=== PATIENT | male | born 1950 | race African-American/Black ===

== ENCOUNTER 2017-08-27 10:01 | Emergency (ER) | payer MEDICARE, MEDICAID ==
[2017-08-27] MEDS ORDERED: LORazepam TAB(*) 1 MG PO ONE (11:28)
[2017-08-27 13:25] VITALS: BP 145/83
--- NOTE | 2017-08-27 18:06 | ED ---
Jordan Patel Julia, scribed for Kali Rios MD on 08/27/17 at 1111 . Lower Extremity - HPI Summary HPI Summary: This patient is a 67 year old M BIBA to [facility] with a chief complaint of L lower back and flank pain that radiates into the L hip since the morning of . The patient rates the pain 10/10 in severity and is unable to walk. Patient fell on 08/23/17 but did not feel pain until two days ago. Patient has been taking his hydrocodone for his chronic back pain to manage his pain. Patient has morphine and ibuprofen allergy. - History of Current Complaint Chief Complaint: EDBackInjuryPain Stated Complaint: BACK PAIN Time Seen by Provider: 08/27/17 10:45 Hx Obtained From: Patient Mechanism Of Injury: Fall From A Standing Position Onset of Pain: Days - 2 Onset/Duration: Still Present Severity Currently: Severe Pain Intensity: 10 Pain Scale Used: 0-10 Numeric Timing: Constant Location: Radiates To - L hip - Allergies/Home Medications Allergies/Adverse Reactions: Allergies Allergy/AdvReac Type Severity Reaction Status Date / Time Celecoxib [From Celebrex] Allergy Intermediate Vomiting Verified 03/01/16 08:43 Ibuprofen Allergy Intermediate Heartburn Verified 03/01/16 08:43 Morphine Allergy Intermediate Rash, N/V Verified 03/01/16 08:43 PMH/Surg Hx/FS Hx/Imm Hx Endocrine/Hematology History: Denies: Hx Diabetes, Hx Systemic Lupus Erythematosus Cardiovascular History: Reports: Hx Angina, Hx Congestive Heart Failure - WITH SURGERY, Hx Coronary Artery Disease, Hx Hypercholesterolemia, Hx Hypertension, Hx Myocardial Infarction, Other Cardiovascular Problems/Disorders - Triple bypass Denies: Hx Pacemaker/ICD Respiratory History: Denies: Hx Asthma - does use inhaler, Hx Chronic Obstructive Pulmonary Disease (COPD), Other Respiratory Problems/Disorders GI History: Reports: Hx Gastroesophageal Reflux Disease Denies: Other GI Disorders History: Reports: Hx Benign Prostatic Hyperplasia, Hx Renal Disease - TORN URETER REPAIRED, Other Problems/Disorders - right ureter stent OUT NOW Denies: Hx Dialysis Musculoskeletal History: Reports: Hx Arthritis - back, right knee, Hx Rheumatoid Arthritis, Hx Back Problems, Other Musculoskeletal History - knee replacement Sensory History: Reports: Hx Cataracts - RIGHT EYE, Hx Contacts or Glasses, Hx Legally Blind - R eye only Denies: Hx Hearing Aid Opthamlomology History: Reports: Hx Cataracts - RIGHT EYE, Hx Contacts or Glasses, Hx Legally Blind - R eye only Neurological History: Reports: Hx Headaches - 3x/week, Hx Seizures - NO SEIZURES FOR 5 YEARS, Other Neuro Impairments/Disorders - hx blackout 2.5 years ago x 1; PAIN CLINIC PT Psychiatric History: Denies: Hx Panic Disorder - Cancer History Hx Chemotherapy: No - Surgical History Surgery Procedure, Year, and Place: EYE SURGERY X3 (RETINA, CATARACT, ), HEMMOROIDECTOMY , BILAT CTR X2 , 2007 , URETER REPAIR OF TEAR(LASER PROCEDURE) , 2012left , LEFT KNEE tendon issues-06/2013EYE SURGERIES WERE CLEARED PREVIOUSLYORBIT XRAYS DONE & CLEARED BY DR JOHNSON, KATHYA BAILEY. TRIPLE BYPASS, 12/2014, LEXIE LADD,RIGHT KNEE 01/2015,BILAT CARPAL TUNNEL. STENTING FOR GLAUCOMA. TOTAL RIGHT KNEE REPLACEMENT Hx Anesthesia Reactions: No Infectious Disease History: No Infectious Disease History: Denies: Traveled Outside the [place] in Last 30 Days - Family History Known Family History: Positive: Diabetes - maternal - Social History Alcohol Use: None Alcohol Amount: HX ETOH ABUSE, SOBER 5 YEARS Substance Use Type: Reports: None, Prescribed Hx Tobacco Use: Yes - QUIT 4 YRS AGO Smoking Status (MU): Former Smoker Type: Cigarettes Amount Used/How Often: 8 CIGS PER DAY Have You Smoked in the Last Year: No Review of Systems Negative: Fever Musculoskeletal: Other - lower back and L hip pain and difficulty walking All Other Systems Reviewed And Are Negative: Yes Physical Exam - Summary Physical Exam Summary: Appearance: The patient is well-nourished in no acute distress and in no acute pain. Skin: The skin is warm and dry and skin color reflects adequate perfusion. HEENT: The head is normocephalic and atraumatic. The pupils are equal and reactive. The conjunctivae are clear and without drainage. Nares are patent and without drainage. Mouth reveals moist mucous membranes and the throat is without erythema and exudate. The external ears are intact. The ear canals are patent and without drainage. The tympanic membranes are intact. Neck: the neck is supple with full range of motion and non-tender. There are no carotid bruits. There is no neck vein distension. Respiratory: Chest is non-tender. Lungs are clear to auscultation and breath sounds are symmetrical and equal. Cardiovascular: Heart is regular rate and rhythm. There is no murmur or rub auscultated. There is no peripheral edema and pulses are symmetrical and equal. Abdomen: The abdomen is soft and non-tender. There are normal bowel sounds heard in all four quadrants and there is no organomegaly palpated. Musculoskeletal: There is L sciatica area tenderness. Extremities are non- tender with full range of motion. There is good capillary refill. There is no peripheral edema or calf tenderness elicited. Neurological: Patient is alert and oriented to person, place and time. The patient has symmetrical motor strength in all four extremities. Cranial nerves are grossly intact. Deep tendon reflexes are symmetrical and equal in all four extremities. Psychiatric: The patient has an appropriate affect and does not exhibit any anxiety or depression. Triage Information Reviewed: Yes Vital Signs On Initial Exam: Initial Vitals Temp Pulse Resp BP Pulse Ox 99.5 F 72 18 149/84 95 08/27/17 10:02 08/27/17 10:02 08/27/17 10:02 08/27/17 10:02 08/27/17 10:02 Vital Signs Reviewed: Yes - Percy Coma Scale Coma Scale Total: 15 Diagnostics - Vital Signs Vital Signs Temp Pulse Resp BP Pulse Ox 08/27/17 10:30 69 132/75 95 08/27/17 10:06 74 97 08/27/17 10:05 149/84 08/27/17 10:02 99.5 F 72 18 149/84 95 - Laboratory Lab Statement: Any lab studies that have been ordered have been reviewed, and results considered in the medical decision making process. Lower Extremity Course/Dx - Course Course Of Treatment: Mr. Galeas presented 4 days after taking a fall. Two days after he began to develope pain and now it is making it difficult to walk. He was tender on the left and I added a muscle relaxant to his regimen of pain medication. He got a lot of relief here and slept some. - Diagnoses Provider Diagnoses: Sciatica Discharge - Discharge Plan Condition: Stable Disposition: HOME Prescriptions: LORazepam TAB(*) [Ativan TAB(*)] 1 mg PO Q8H PRN #10 tab MDD 4 PRN Reason: Pain Patient Education Materials: Sciatica (ED) Referrals: Lucille Salguero MD [Primary Care Provider] - Additional Instructions: Follow up with Primary Care Physician. Patient will be prescribed Lorazepam for pain. RETURN TO THE EMERGENCY DEPARTMENT FOR CHANGING OR WORSENING SYMPTOMS. The documentation as recorded by the Jordan miguel Julia accurately reflects the service I personally performed and the decisions made by me, Kali Rios MD.
== END 2017-08-27 13:23 | disposition home or self-care (01) ==
LOC: ED 10:01
DX: M54.30 Sciatica, unspecified side (principal); M54.5 Low back pain; R10.84 Generalized abdominal pain; M25.552 Pain in left hip; Z87.891 Personal history of nicotine dependence
CPT/HCPCS: 99282; A9270-GY

== ENCOUNTER 2021-05-13 08:45 | Inpatient (IN) ==
[2021-05-13] MEDS ORDERED: Ondansetron 4 mg VIAL 2 MG/ML 2 ml VIAL IV ONE (09:17)
[2021-05-13] MEDS ORDERED: fentaNYL 100 mcg/2 ml 50 MCG/ML VIAL IV SLOW PU ONE ×2 (09:17→10:33)
[2021-05-13] MEDS: Lactated Ringers 1000 ml BAG 1,000 ML IV SCH ×2 (09:24→10:10)
[2021-05-13 09:33] LABS: ABS Basophils 0.1 10^3/ul (0-0.2); ABS Eosinophils 0.1 10^3/ul (0-0.6); ABS Lymphocytes 1.1 10^3/ul (1.0-4.8); ABS Monocytes 0.9 10^3/ul (0-0.8); ABS Neutrophils 6.6 10^3/ul (1.5-7.7); Eosinophil % 0.6 %; Hematocrit 48 % (42-52); Hemoglobin 15.9 g/dL (14.0-18.0); Lymphocyte % 12.9 %; Mean Corpuscular HGB Conc 34 g/dL (31-36); Mean Corpuscular Hemoglobin 29 pg (27-31); Mean Corpuscular Volume 88 fL (80-94); Mean Platelet Volume 7.5 fL (7.4-10.4); Platelet Count 424 10^3/uL (150-450); Red Blood Count 5.44 10^6 /uL (4.18-5.48); Red Cell Distribution Width 16 % (10-15); White Blood Count 8.7 10^3/uL (3.5-10.8)
[2021-05-13 10:08] LABS: ALT 22 U/L (7-52); AST 29 U/L (13-39); Albumin 4.9 g/dL (3.2-5.2); Albumin/Globulin Ratio 1.1 (1-3); Alkaline Phosphatase 101 U/L (35-149); Anion Gap 13 mmol/L (2-11); Blood Urea Nitrogen 15 mg/dL (6-24); C Reactive Protein 5.56 mg/L (<8.01); CO2 Carbon Dioxide 27 mmol/L (22-32); Calcium 10.8 mg/dL (8.6-10.3); Chloride 97 mmol/L (101-111); Globulin 4.4 g/dL (2-4); Glucose 121 mg/dL (70-100); Lipase 13 U/L (11.0-82.0); Magnesium 1.4 mg/dL (1.9-2.7); Potassium 3.7 mmol/L (3.5-5.0); Sodium 137 mmol/L (135-145); Total Protein 9.3 g/dL (6.4-8.9)
[2021-05-13] MEDS ORDERED: Magnesium Sulf 4 GM/100 ML IV 4,000 MG/100 ML BAG IVPB ONE (10:12)
[2021-05-13] MEDS ORDERED: Metoprolol Tartrate 5 mg VIAL 5 ml VIAL (1 mg/ml) IV ONE (11:25)
[2021-05-13] MEDS ORDERED: Lactated Ringers 1000 ml BAG 1,000 ML IV ONE ×2 (11:26→12:11)
[2021-05-13] MEDS ORDERED: Iodixanol (CONTRAST) 320 MG/ML 100 ML SDV IV ONE ×2 (11:32→17:31)
[2021-05-13] MEDS ORDERED: HYDROmorphone 1 MG/1 ML SYRINGE IV ONE (12:10)
[2021-05-13] MEDS ORDERED: Famotidine IV 10 MG/ML 2 ml VIAL (20 mg) IV SLOW PU ONE (12:50)
[2021-05-13] MEDS ORDERED: Sucralfate 1 gm SUSP 1 GM/10 ML UDC PO ONE (12:51)
[2021-05-13 13:18] LABS: Troponin I 0.25 ng/mL (<0.03)
[2021-05-13 14:45] LABS: Troponin I 0.95 ng/mL (<0.03)
[2021-05-13] MEDS ORDERED: Heparin 5000 UNITS/ML 1 mL VIAL IV SCH (17:00)
[2021-05-13] MEDS ORDERED: Albuterol HFA INHALER 8 gm MDI INH PRN (17:13)
[2021-05-13 17:19] LABS: Troponin I 1.05 ng/mL (<0.03)
[2021-05-13] MEDS: Heparin DRIP 25,000 UNITS BAG 25,000 UNITS/500 ML BAG IV SCH (17:41)
[2021-05-13 17:54] LABS: Activated Partial Thrombo Time 27.8 seconds (26.0-38.0); INR 1.05 (0.86-1.15)
[2021-05-13 18:49] LABS: Rapid COVID-19 Molecular Undetected (Undetected)
[2021-05-13] MEDS: HYDROcodone/ACETAMIN 5/325 mg TAB PO PRN ×2 (19:29→23:42)
[2021-05-13] MEDS ORDERED: KCL 20 MEQ/100 ML IVPREMIX 20 MEQ/100 ML BAG IV ONE (19:50)
[2021-05-13] MEDS ORDERED: KCL 20 MEQ/100 ML IVPREMIX 20 MEQ/100 ML BAG ONE (21:53)
[2021-05-13] MEDS ORDERED: NS 0.9% 1000 ml BAG 1,000 ML IV SCH (22:45)
[2021-05-13] MEDS: Mometasone 220 MCG MDI INH SCH (23:02)
[2021-05-13] MEDS: Nystatin TOP POWDER 15 GM BTL TOPICAL SCH (23:21)
[2021-05-14 00:07] LABS: Troponin I 0.73 ng/mL (<0.03)
[2021-05-14] MEDS ORDERED: Al Hydrox/Mg Hydrox/Simet LIQ 30 ML UDC PO ONE (00:43)
[2021-05-14 03:10] LABS: Troponin I 0.49 ng/mL (<0.03)
[2021-05-14 05:56] LABS: ABS Basophils 0.1 10^3/ul (0-0.2); ABS Eosinophils 0.1 10^3/ul (0-0.6); ABS Monocytes 0.7 10^3/ul (0-0.8); ABS Neutrophils 3.6 10^3/ul (1.5-7.7); Eosinophil % 2.3 %; Hematocrit 39 % (42-52); Lymphocyte % 31.2 %; Mean Corpuscular HGB Conc 34 g/dL (31-36); Mean Corpuscular Hemoglobin 30 pg (27-31); Mean Corpuscular Volume 88 fL (80-94); Mean Platelet Volume 7.4 fL (7.4-10.4); Nucleated Red Blood Cells % 0.1; Platelet Count 306 10^3/uL (150-450); Red Blood Count 4.38 10^6 /uL (4.18-5.48); Red Cell Distribution Width 16 % (10-15); White Blood Count 6.5 10^3/uL (3.5-10.8)
[2021-05-14] MEDS: HYDROcodone/ACETAMIN 5/325 mg TAB PO PRN ×3 (06:00→19:08)
[2021-05-14 06:12] LABS: Anion Gap 7 mmol/L (2-11); Blood Urea Nitrogen 14 mg/dL (6-24); CO2 Carbon Dioxide 27 mmol/L (22-32); Calcium 8.5 mg/dL (8.6-10.3); Chloride 102 mmol/L (101-111); Glucose 95 mg/dL (70-100); Potassium 3.7 mmol/L (3.5-5.0); Sodium 136 mmol/L (135-145)
[2021-05-14 06:37] LABS: Troponin I 0.43 ng/mL (<0.03)
[2021-05-14] MEDS: Mometasone 220 MCG MDI INH SCH ×2 (08:07→19:46)
[2021-05-14] MEDS: SPIRIVA Respimat (tiotropium) 2.5 mcg/inh Inhaler INH SCH (08:07)
[2021-05-14] MEDS: Doxepin 3 mg TAB (NF) PO SCH (10:01)
[2021-05-14] MEDS: Nystatin TOP POWDER 15 GM BTL TOPICAL SCH ×4 (10:02→21:36)
[2021-05-14] MEDS: Sucralfate 1 gm SUSP 1 GM/10 ML UDC PO SCH ×3 (10:02→15:55)
[2021-05-14] MEDS ORDERED: Famotidine IV 10 MG/ML 2 ml VIAL (20 mg) IV SLOW PU PRN (10:07)
[2021-05-14] MEDS ORDERED: Regadenoson 0.4 MG/5 ML SYRINGE ONE (16:01)
[2021-05-14] MEDS: Heparin DRIP 25,000 UNITS BAG 25,000 UNITS/500 ML BAG IV SCH (22:04)
[2021-05-15] MEDS: HYDROcodone/ACETAMIN 5/325 mg TAB PO PRN ×3 (00:31→13:59)
[2021-05-15 04:35] LABS: ABS Eosinophils 0.2 10^3/ul (0-0.6); ABS Lymphocytes 2.4 10^3/ul (1.0-4.8); ABS Monocytes 0.8 10^3/ul (0-0.8); ABS Neutrophils 2.4 10^3/ul (1.5-7.7); Eosinophil % 3.2 %; Hematocrit 35 % (42-52); Hemoglobin 11.6 g/dL (14.0-18.0); Lymphocyte % 40.7 %; Mean Corpuscular HGB Conc 33 g/dL (31-36); Mean Corpuscular Hemoglobin 29 pg (27-31); Mean Corpuscular Volume 87 fL (80-94); Mean Platelet Volume 7.1 fL (7.4-10.4); Nucleated Red Blood Cells % 0.1; Platelet Count 282 10^3/uL (150-450); Red Blood Count 4.01 10^6 /uL (4.18-5.48); Red Cell Distribution Width 16 % (10-15); White Blood Count 5.8 10^3/uL (3.5-10.8)
[2021-05-15] MEDS: SPIRIVA Respimat (tiotropium) 2.5 mcg/inh Inhaler INH SCH (08:16)
[2021-05-15] MEDS: Mometasone 220 MCG MDI INH SCH (08:17)
[2021-05-15] MEDS: Doxepin 3 mg TAB (NF) PO SCH (08:17)
[2021-05-15] MEDS: Sucralfate 1 gm SUSP 1 GM/10 ML UDC PO SCH ×2 (08:19→12:28)
[2021-05-15] MEDS: Nystatin TOP POWDER 15 GM BTL TOPICAL SCH ×2 (08:24→14:20)
[2021-05-15 11:54] LABS: Calcium 9.2 mg/dL (8.6-10.3); Magnesium 1.9 mg/dL (1.9-2.7); Potassium 4.1 mmol/L (3.5-5.0)
[2021-05-15 12:05] VITALS: BP 129/57
== END 2021-05-15 15:38 | disposition home or self-care (01) | DRG 392 ==
LOC: ED 08:45 → SUATTDRO 20:11 → MEDTELE 20:11
PROVIDERS: ADMIT Internal Medicine; ATTEND Internal Medicine

== ENCOUNTER 2021-12-05 19:50 | Observation (INO) ==
[2021-12-05 20:45] LABS: ABS Lymphocytes 0.8 10^3/ul (1.0-4.8); ABS Neutrophils 6.9 10^3/ul (1.5-7.7); Eosinophil % 0.3 %; Hematocrit 43 % (42-52); Hemoglobin 14.2 g/dL (14.0-18.0); Lymphocyte % 9.5 %; Mean Corpuscular HGB Conc 33 g/dL (31-36); Mean Corpuscular Hemoglobin 30 pg (27-31); Mean Corpuscular Volume 91 fL (80-94); Mean Platelet Volume 6.9 fL (7.4-10.4); Platelet Count 331 10^3/uL (150-450); Red Blood Count 4.68 10^6 /uL (4.18-5.48); Red Cell Distribution Width 14 % (10-15); White Blood Count 8.9 10^3/uL (3.5-10.8)
[2021-12-05 20:48] LABS: INR 1.09 (0.86-1.15)
[2021-12-05] MEDS ORDERED: HYDROmorphone 0.5 MG/0.5 ML SYRINGE IV SLOW PU ONE ×2 (20:53→21:40)
[2021-12-05 21:11] LABS: Albumin 3.6 g/dL (3.2-5.2); Albumin/Globulin Ratio 1.1 (1-3); Calcium 9.4 mg/dL (8.6-10.3); Globulin 3.2 g/dL (2-4); Total Bilirubin 0.6 mg/dL (0.2-1.0); Total Protein 6.8 g/dL (6.4-8.9); eGFR CKD-EPI 92.5 (>60)
[2021-12-05 21:35] LABS: Activated Partial Thrombo Time 24.2 seconds (26.0-38.0)
[2021-12-05] MEDS ORDERED: Iohexol 350 (CONTRAST) 500 ML MDV IV ONE (21:48)
[2021-12-05 22:08] LABS: High Sensitivity Troponin 1 Hr 22 pg/mL (<20)
[2021-12-05] MEDS ORDERED: Metoprolol Tartrate 5 mg VIAL 5 ml VIAL (1 mg/ml) IV ONE (23:13)
[2021-12-05] MEDS ORDERED: Heparin 5000 UNITS/ML 1 mL VIAL IV SCH (23:45)
[2021-12-05] MEDS ORDERED: Metoprolol Tartrate 5 mg VIAL 5 ml VIAL (1 mg/ml) ONE (23:54)
[2021-12-06] MEDS ORDERED: Metoprolol Tartrate 5 mg VIAL 5 ml VIAL (1 mg/ml) IV ONE
[2021-12-06 00:09] LABS: C Reactive Protein 69.83 mg/L (<8.01)
[2021-12-06] MEDS: Heparin DRIP 25,000 UNITS BAG 25,000 UNITS/500 ML BAG IV SCH (00:12)
[2021-12-06] MEDS ORDERED: Nitro 2% OINT (Nitroglycerin) 1 INCH/PAK TOPICAL ONE (00:14)
[2021-12-06] MEDS ORDERED: Naloxone Nasal Spray 4 MG/0.1 ML NASAL.SPR INTRANASAL PRN (00:42)
[2021-12-06 01:02] LABS: Erythrocyte Sed Rate 62 mm/Hr (0-19)
[2021-12-06 01:25] LABS: HDL Cholesterol 56.9 mg/dL
[2021-12-06] MEDS: Nitro 2% OINT (Nitroglycerin) 1 INCH/PAK TOPICAL SCH ×3 (02:16→11:36)
[2021-12-06 06:11] LABS: ABS Eosinophils 0.1 10^3/ul (0-0.6); ABS Lymphocytes 1.5 10^3/ul (1.0-4.8); ABS Monocytes 1.3 10^3/ul (0-0.8); ABS Neutrophils 5.6 10^3/ul (1.5-7.7); Hematocrit 42 % (42-52); Hemoglobin 13.7 g/dL (14.0-18.0); Lymphocyte % 17.4 %; Mean Corpuscular HGB Conc 33 g/dL (31-36); Mean Corpuscular Hemoglobin 30 pg (27-31); Mean Corpuscular Volume 92 fL (80-94); Platelet Count 307 10^3/uL (150-450); Red Blood Count 4.54 10^6 /uL (4.18-5.48); Red Cell Distribution Width 14 % (10-15); White Blood Count 8.5 10^3/uL (3.5-10.8)
[2021-12-06 06:32] LABS: Calcium 9.3 mg/dL (8.6-10.3); Magnesium 1.6 mg/dL (1.9-2.7); eGFR CKD-EPI 93.8 (>60)
[2021-12-06] MEDS ORDERED: Magnesium Sulfate IV 3 GM in NS 0.9% 100 ml BAG 100 ML IVPB ONE (07:18)
[2021-12-06] MEDS ORDERED: Magnesium Sulfate 2 GM IV (Premix) IVPB ONE (08:00)
[2021-12-06] MEDS ORDERED: HYDROmorphone 0.5 MG/0.5 ML SYRINGE IV SLOW PU ONE (08:05)
[2021-12-06] MEDS: Mometasone 220 MCG MDI INH SCH ×2 (08:11→20:55)
[2021-12-06] MEDS: SPIRIVA Respimat (tiotropium) 2.5 mcg/inh Inhaler INH SCH (08:11)
[2021-12-06] MEDS ORDERED: Magnesium Sulfate 1 GM IV 1 GM/100 ML BAG IV ONE (09:00)
[2021-12-06] MEDS ORDERED: DOXEPIN 6 MG PO SCH (09:00)
[2021-12-06] MEDS ORDERED: Potassium Chlor 10 meq TAB PO SCH (09:00)
[2021-12-06 09:14] LABS: High Sensitivity Troponin 3 Hr 34 pg/mL (<20)
[2021-12-06 10:03] LABS: C Reactive Protein 95.9 mg/L (<8.01)
[2021-12-06] MEDS: Aspirin EC 325 mg TAB.EC PO SCH ×2 (11:35→17:43)
[2021-12-06] MEDS: HYDROmorphone 0.5 MG/0.5 ML SYRINGE IV SLOW PU PRN ×2 (16:21→22:27)
[2021-12-06 18:35] LABS: Rapid COVID-19 Molecular Undetected (Undetected)
[2021-12-07] MEDS: Aspirin EC 325 mg TAB.EC PO SCH ×3 (01:09→19:13)
[2021-12-07] MEDS: Nitro 2% OINT (Nitroglycerin) 1 INCH/PAK TOPICAL SCH ×2 (05:30→13:00)
[2021-12-07 06:40] LABS: ABS Eosinophils 0.1 10^3/ul (0-0.6); ABS Lymphocytes 1.8 10^3/ul (1.0-4.8); ABS Neutrophils 4.8 10^3/ul (1.5-7.7); Eosinophil % 1.8 %; Hematocrit 39 % (42-52); Hemoglobin 13.2 g/dL (14.0-18.0); Lymphocyte % 23.5 %; Mean Corpuscular HGB Conc 34 g/dL (31-36); Mean Corpuscular Hemoglobin 31 pg (27-31); Mean Corpuscular Volume 91 fL (80-94); Mean Platelet Volume 7.3 fL (7.4-10.4); Platelet Count 286 10^3/uL (150-450); Red Blood Count 4.29 10^6 /uL (4.18-5.48); Red Cell Distribution Width 14 % (10-15); White Blood Count 7.7 10^3/uL (3.5-10.8)
[2021-12-07 07:05] LABS: C Reactive Protein 101.95 mg/L (<8.01); Calcium 8.9 mg/dL (8.6-10.3); Magnesium 1.8 mg/dL (1.9-2.7); Potassium 4.2 mmol/L (3.5-5.0); eGFR CKD-EPI 79.1 (>60)
[2021-12-07] MEDS: HYDROmorphone 0.5 MG/0.5 ML SYRINGE IV SLOW PU PRN ×4 (07:55→23:37)
[2021-12-07] MEDS: SPIRIVA Respimat (tiotropium) 2.5 mcg/inh Inhaler INH SCH (08:40)
[2021-12-07] MEDS: Mometasone 220 MCG MDI INH SCH ×2 (08:43→19:44)
[2021-12-07] MEDS: Heparin DRIP 25,000 UNITS BAG 25,000 UNITS/500 ML BAG IV SCH (08:48)
[2021-12-07] MEDS ORDERED: Regadenoson 0.4 MG/5 ML SYRINGE ONE (12:53)
[2021-12-07] MEDS: Doxepin 3 mg TAB (NF) PO SCH (13:02)
[2021-12-08] MEDS: Aspirin EC 325 mg TAB.EC PO SCH ×2 (01:55→11:36)
[2021-12-08] MEDS: Nitro 2% OINT (Nitroglycerin) 1 INCH/PAK TOPICAL SCH (06:21)
[2021-12-08] MEDS ORDERED: Enoxaparin 40 MG/0.4 ML SYR SUBCUT SCH (08:00)
[2021-12-08] MEDS: SPIRIVA Respimat (tiotropium) 2.5 mcg/inh Inhaler INH SCH (08:07)
[2021-12-08] MEDS: Mometasone 220 MCG MDI INH SCH (08:09)
[2021-12-08] MEDS: HYDROmorphone 0.5 MG/0.5 ML SYRINGE IV SLOW PU PRN (08:11)
[2021-12-08] MEDS: Doxepin 3 mg TAB (NF) PO SCH (08:47)
[2021-12-08 08:48] LABS: ABS Eosinophils 0.2 10^3/ul (0-0.6); ABS Lymphocytes 1.7 10^3/ul (1.0-4.8); ABS Monocytes 0.8 10^3/ul (0-0.8); ABS Neutrophils 4.4 10^3/ul (1.5-7.7); Eosinophil % 2.2 %; Hematocrit 41 % (42-52); Hemoglobin 13.4 g/dL (14.0-18.0); Lymphocyte % 23.9 %; Mean Corpuscular HGB Conc 33 g/dL (31-36); Mean Corpuscular Hemoglobin 30 pg (27-31); Mean Corpuscular Volume 92 fL (80-94); Mean Platelet Volume 7.3 fL (7.4-10.4); Platelet Count 327 10^3/uL (150-450); Red Blood Count 4.49 10^6 /uL (4.18-5.48); Red Cell Distribution Width 14 % (10-15); White Blood Count 7.1 10^3/uL (3.5-10.8)
[2021-12-08 09:12] LABS: Magnesium 1.6 mg/dL (1.9-2.7); Potassium 4.3 mmol/L (3.5-5.0); eGFR CKD-EPI 78.1 (>60)
[2021-12-08 13:16] VITALS: BP 112/56
== END 2021-12-08 15:00 | disposition home or self-care (01) ==
LOC: EDHOLD 19:50 → ED 19:50 → SUATTDRO 23:44 → EDHOLD 12-06 01:34 → MEDTELE 12-06 01:45 → UNDODISOB 12-06 01:46
PROVIDERS: ADMIT Internal Medicine; ATTEND Internal Medicine

== ENCOUNTER 2023-10-17 09:56 | Observation (INO) ==
[2023-10-17 10:35] LABS: ABS Basophils 0.1 10^3/uL (0.0-0.1); ABS Eosinophils 0.2 10^3/uL (0.0-0.5); ABS Lymphocytes 1.2 10^3/uL (1.0-4.8); ABS Neutrophils 4.7 10^3/uL (1.5-7.6); ABS Nucleated RBC 0.01 10^3/ul; Eosinophil % 2.2 %; Hematocrit 38.8 % (38-53); Hemoglobin 12.9 g/dL (13.2-16.3); Lymphocyte % 17.2 %; Mean Corpuscular Hemoglobin 30.6 pg (27-33); Mean Corpuscular Hgb Conc 33.1 g/dL (31-36); Mean Corpuscular Volume 92.3 fL (80-97); Mean Platelet Volume 7.1 fL (7.5-11.2); Nucleated Red Blood Cells % 0.1 %/100WBC (0.0-0.8); Platelet Count 278 10^3/uL (150-450); Red Cell Distribution Width 14.2 % (12-17); White Blood Count 7.1 10^3/uL (3.6-10.2)
[2023-10-17] MEDS: Lactated Ringers 1000 ml BAG 1,000 ML IV ONE (10:40)
[2023-10-17 10:43] LABS: INR 1.07 (0.83-1.13)
[2023-10-17] MEDS: Adenosine 3 MG/ML 2 ml VIAL (6 mg) IV PUSH ONE (11:24)
[2023-10-17] MEDS: Ondansetron 4 mg VIAL 2 MG/ML 2 ml VIAL IV ONE (11:31)
[2023-10-17 11:44] LABS: TSH Ultra Thyroid Stim Horm 0.19 mcIU/mL (0.34-5.60)
[2023-10-17] MEDS: Metoprolol Tartrate 5 mg VIAL 5 ml VIAL (1 mg/ml) IV ONE (11:46)
[2023-10-17] MEDS: oxyCODONE/Acetamin 5/325 mg TAB PO ONE (11:46)
[2023-10-17 12:43] LABS: Hepatitis C Antibody Negative (Negative)
[2023-10-17 12:50] LABS: Albumin 4.2 g/dL (3.2-5.2); Albumin/Globulin Ratio 1.2 (1-3); Calcium 9.6 mg/dL (8.6-10.3); Creatinine, Serum 1.14 mg/dL (0.67-1.17); Globulin 3.6 g/dL (2-4); Magnesium 1.3 mg/dL (1.9-2.7); Potassium 3.4 mmol/L (3.5-5.0); Total Bilirubin 0.7 mg/dL (0.2-1.0); Total Protein 7.8 g/dL (6.4-8.9); eGFR CKD-EPI 68.3 (>60)
[2023-10-17 13:15] LABS: High Sensitivity Troponin 1 Hr 44 pg/mL (<20)
[2023-10-17 13:38] LABS: Free T4 0.98 ng/dL (0.61-1.12)
[2023-10-17] MEDS: Iohexol 350 (CONTRAST) 500 ML MDV IV ONE ×2 (14:30→14:36)
[2023-10-17] MEDS: Magnesium Sulf 4 GM/100 ML IV 4,000 MG/100 ML BAG IVPB ONE (16:19)
[2023-10-17] MEDS ORDERED: Albuterol HFA INHALER 8 gm MDI INH PRN (16:26)
[2023-10-17] MEDS: SPIRIVA Respimat (tiotropium) 2.5 mcg/inh Inhaler INH SCH ×2 (16:41→19:43)
[2023-10-17] MEDS: Aspirin EC 81 mg TAB.EC (enteric coated) PO SCH (17:06)
[2023-10-17] MEDS: Enoxaparin 40 MG/0.4 ML SYR SUBCUT SCH (17:07)
[2023-10-17] MEDS ORDERED: Labetalol IV 5 MG/ML 20 ml VIAL IV PUSH PRN ×2 (18:03→18:23)
[2023-10-17] MEDS: HYDROcodone/Acetamin 10/325 TAB (NF) PO PRN (18:47)
[2023-10-17] MEDS: Mometasone 220 MCG MDI INH SCH (19:43)
[2023-10-18 05:31] LABS: Creatinine, Serum 1.14 mg/dL (0.67-1.17); Magnesium 2.4 mg/dL (1.9-2.7); Potassium 3.3 mmol/L (3.5-5.0); eGFR CKD-EPI 68.3 (>60)
[2023-10-18] MEDS: Potassium Chlor 20 meq TAB.ER PO ONE ×2 (09:05→17:53)
[2023-10-18] MEDS ORDERED: Aminophylline 25 MG/ML VIAL ONE (13:28)
[2023-10-18] MEDS ORDERED: Regadenoson 0.4 MG/5 ML SYRINGE ONE (13:28)
[2023-10-18 17:15] LABS: Free T3 2.98 pg/mL (2.5-3.9)
[2023-10-18] MEDS: Calcium Carb (TUMS) 500 mg CHEW TAB PO PRN (20:15)
[2023-10-19 06:30] LABS: Hematocrit 32.1 % (38-53); Hemoglobin 10.9 g/dL (13.2-16.3); Mean Corpuscular Hemoglobin 31.4 pg (27-33); Mean Corpuscular Hgb Conc 33.9 g/dL (31-36); Mean Corpuscular Volume 92.5 fL (80-97); Mean Platelet Volume 7.5 fL (7.5-11.2); Platelet Count 201 10^3/uL (150-450); Red Blood Count 3.47 10^6/uL (4.06-5.63); White Blood Count 4.1 10^3/uL (3.6-10.2)
[2023-10-19 06:45] LABS: Calcium 8.8 mg/dL (8.6-10.3); Creatinine, Serum 1.26 mg/dL (0.67-1.17); HDL Cholesterol 68.5 mg/dL; Magnesium 1.9 mg/dL (1.9-2.7); Potassium 4.3 mmol/L (3.5-5.0); eGFR CKD-EPI 60.6 (>60)
[2023-10-19 10:01] VITALS: BP 129/75
== END 2023-10-19 13:50 | disposition home or self-care (01) ==
LOC: ED 09:56 → EDHOLD 09:56 → MEDTELE 17:52
PROVIDERS: ADMIT Internal Medicine; ATTEND Internal Medicine

== ENCOUNTER 2023-11-03 13:36 | Observation (INO) ==
[~2023-11-03 13:36] MED LIST: Acetaminophen IV 1 GM/100ML 1,000 MG/100 ML BAG IV PRN; HYDROmorphone 1 MG/1 ML SYRINGE IV PRN; Naloxone 0.4 mg VIAL 0.4 mg/ml 1 ml VIAL IV PRN; Ondansetron 4 mg VIAL 2 MG/ML 2 ml VIAL IV PRN; fentaNYL 100 mcg/2 ml 50 MCG/ML VIAL IV PRN
[2023-11-03] MEDS ORDERED: Rocuronium 50 mg VIAL 10 mg/ml 5 ml VIAL (50 mg) ONE (13:45)
[2023-11-03] MEDS ORDERED: Propofol 10 MG/ML 20 ML BTL ONE ×2 (13:45→17:40)
[2023-11-03] MEDS ORDERED: Lidocaine 2% PF 5 ML VIAL ONE (13:45)
[2023-11-03] MEDS ORDERED: fentaNYL 100 mcg/2 ml 50 MCG/ML VIAL ONE (13:45)
[2023-11-03] MEDS ORDERED: Midazolam 2 mg/2 ml VIAL 1 mg/ml 2 ml VIAL (2 mg) ONE ×2 (13:46→15:20)
[2023-11-03] MEDS ORDERED: ceFAZolin 2 GM PREMIX 2 GM/50 ML BAG ONE (14:11)
[2023-11-03] MEDS ORDERED: Tranexamic Acid 1 GM/100ML BAG 2,000 MG/200 ML BAG IV ONE (14:11)
[2023-11-03 14:36] LABS: Rapid COVID-19 Molecular Undetected (Undetected)
[2023-11-03] MEDS ORDERED: Phenylephrine IV 10 MG/ML 1 ml VIAL ONE (15:18)
[2023-11-03] MEDS ORDERED: ROPIVACAINE 5 MG/ML 30 ML BTL (0.5%) ONE ×2 (15:20→15:54)
[2023-11-03] MEDS ORDERED: Ondansetron 4 mg VIAL 2 MG/ML 2 ml VIAL IV PRN (16:49)
[2023-11-03] MEDS ORDERED: Lactulose 30 ml UDC PO PRN (16:49)
[2023-11-03] MEDS ORDERED: Ondansetron ODT 4 mg TAB 4 MG TAB PO PRN (16:49)
[2023-11-03] MEDS ORDERED: Magnesium Hydroxide LIQ 30 ML UDC PO PRN (16:49)
[2023-11-03] MEDS ORDERED: Ondansetron 4 mg VIAL 2 MG/ML 2 ml VIAL ONE (16:53)
[2023-11-03] MEDS ORDERED: Dexamethasone IV 4 MG/ML VIAL 1 ml VIAL ONE (16:53)
[2023-11-03] MEDS ORDERED: Glycopyrrolate IV 0.2 MG/ML 1 ML VIAL ONE (16:54)
[2023-11-03] MEDS ORDERED: Succinylcholine 200 mg VIAL 20 mg/ml 10 ml VIAL (200 mg) ONE (18:02)
[2023-11-03] MEDS ORDERED: Albuterol HFA INHALER 8 gm MDI INH PRN (21:44)
[2023-11-03] MEDS: Magnesium Hydroxide LIQ 30 ML UDC PO SCH (21:50)
[2023-11-03] MEDS: Lactated Ringers 1000 ml BAG 1,000 ML IV SCH ×2 (21:50→22:23)
[2023-11-03] MEDS: Buffered Lidocaine 1% SYRIN 1 ml INTRADERM ONE (21:57)
[2023-11-03] MEDS: Fluticasone HFA 220 mcg(NF) MDI INH SCH (22:23)
[2023-11-03] MEDS: Morphine 2 MG/ML SYRINGE IV PRN (23:49)
[2023-11-04] MEDS: ceFAZolin 1 GM ADVAN 1 GM in NS 0.9% 50 ML 50 ML IVPB SCH (00:38)
[2023-11-04 06:07] LABS: Hemoglobin 9.5 g/dL (13.2-16.3); Mean Platelet Volume 7.6 fL (7.5-11.2); Platelet Count 251 10^3/uL (150-450)
[2023-11-04 06:26] LABS: Calcium 9.1 mg/dL (8.6-10.3); Creatinine, Serum 1.57 mg/dL (0.67-1.17); Potassium 4.2 mmol/L (3.5-5.0); eGFR CKD-EPI 46.5 (>60)
[2023-11-04] MEDS: Mometasone 220 MCG MDI INH SCH (07:26)
[2023-11-04] MEDS: SPIRIVA Respimat (tiotropium) 2.5 mcg/inh Inhaler INH SCH (07:26)
[2023-11-04 10:00] VITALS: BP 152/109
[2023-11-04] MEDS: Lactated Ringers 1000 ml BAG 1,000 ML IV SCH (11:18)
[2023-11-04] MEDS: Aspirin EC 81 mg TAB.EC (enteric coated) PO SCH (11:20)
[2023-11-04] MEDS: Vitamin THERAPEUTIC TAB PO SCH (11:21)
[2023-11-08 16:44] LABS: Plasma Free Metanephrine <0.20 nmol/L (<0.50); Plasma Free Normetanephrine 1.5 nmol/L (<0.90)
== END 2023-11-04 12:10 | disposition home or self-care (01) ==
LOC: OR 13:36 → INTOOBSV 20:44 → SSU 20:44
PROVIDERS: ADMIT Orthopaedic Surgery Adult Reconstructive Orthopaedic Surgery; ATTEND Orthopaedic Surgery Adult Reconstructive Orthopaedic Surgery